=== PATIENT | female | born 1960 | race Caucasian/White ===

== ENCOUNTER 2019-08-12 14:29 | Inpatient (IN) | payer BC, OTHER ==
[~2019-08-12] VITALS: Ht 160 cm; Wt 80.1 kg
[2019-08-12] MEDS ORDERED: PANTOPRAZOLE 40 MG/10 ML VIAL INJ IV STA (14:51)
[2019-08-12] MEDS ORDERED: SODIUM CHLORIDE 0.9% 1,000 ML IVB ONE (14:51)
[2019-08-12] MEDS ORDERED: MORPHINE SULFATE 4 MG/ML SYR/VIAL IV ONE (15:00)
[2019-08-12] MEDS ORDERED: PROCHLORPERAZINE EDISYLATE 5 MG/ML 2ML VIAL IV ONE (15:00)
[2019-08-12 15:14] LABS: Basophils # (auto) 0 10 ^3/uL (0-0.2); Basophils % (auto) 0.5 % (0.0-2.0); Eosinophils # (auto) 0 10 ^3/uL (0-0.8); Hematocrit 44.2 % (36.0-46.0); Hemoglobin 14.9 g/dL (12.2-16.2); Lymphocytes # (auto) 1.3 10 ^3/uL (0.4-5.4); Lymphocytes % (auto) 13.9 % (10.0-50.0); Mean Corpuscular Hemoglobin 29.7 pg (28.0-32.0); Mean Corpuscular Hgb Conc. 33.8 g/dL (32.0-36.0); Monocytes # (auto) 0.4 10 ^3/uL (0-1.3); Neutrophils # (auto) 7.6 10 ^3/uL (1.6-8.6); Neutrophils % (auto) 81.6 % (37.0-80.0); Nucleated Red Blood Cells % 0.1 %; Platelet Count (auto) 273 10^3/uL (140-450); Red Blood Cells 5.03 10^6/uL (4.0-5.20); Red Cell Distribution Width 12.9 % (11.8-14.3); White Blood Cell 9.3 10^3/uL (4.4-10.8)
[2019-08-12 15:31] LABS: Albumin 4.3 g/dL (3.4-5.0); BUN/Creatinine Ratio 24.7; Calcium 9.7 mg/dL (8.5-10.1); Potassium 3.7 mmol/L (3.5-5.1)
[2019-08-12 15:38] LABS: Bilirubin, Total 0.5 mg/dL (0.2-1.0); Total Protein 8.5 g/dL (6.4-8.2)
[2019-08-12] MEDS ORDERED: IOHEXOL 300 MG/ML 100ML BOTTLE IJ ONE (16:27)
[2019-08-12] MEDS ORDERED: NITROGLYCERIN 0.4 MG SL TAB SL PRN (16:30)
[2019-08-12] MEDS ORDERED: MORPHINE SULF INJ 2 MG/ML SYRINGE 1ML IV PRN ×2 (16:30)
[2019-08-12] MEDS ORDERED: ONDANSETRON HCL 4 MG/2 ML VIAL IV PRN ×2 (16:30→16:45)
[2019-08-12] MEDS ORDERED: LORazepam 2MG/ML-1ML VIAL IV PRN (16:45)
[2019-08-12] MEDS ORDERED: SODIUM CHLORIDE 0.9% 1,000 ML IV ONE (16:45)
[2019-08-12 18:36] LABS: Urine Amorphous Crystal FEW /hpf (None Seen); Urine Bacteria NONE SEEN /hpf (None Seen); Urine Blood Negative /uL (Negative); Urine Mucus FEW (None Seen); Urine Specific Gravity 1.011 (1.001-1.035); Urine WBC 1 /hpf (0 - 5)
[2019-08-12] MEDS: D5W/SOD CHLO 0.9% 1,000 ML IV SCH (19:26)
[2019-08-12 22:00] VITALS: BP 143/79
[2019-08-12] MEDS ORDERED: ATOR20TA50 PO (22:49)
[2019-08-12] MEDS ORDERED: BIOTCAP2 PO (22:49)
[2019-08-12] MEDS ORDERED: LEVO150T10 PO (22:49)
[2019-08-12] MEDS: PANTOPRAZOLE 40 MG/10 ML VIAL INJ IV SCH (22:59)
[2019-08-12 23:00] VITALS: BP 143/79
[2019-08-13 05:00] VITALS: BP 127/97
[2019-08-13] MEDS: D5W/SOD CHLO 0.9% 1,000 ML IV SCH ×3 (06:04→22:26)
[2019-08-13 06:07] LABS: INR 1.11 (0.9-1.15)
[2019-08-13] MEDS ORDERED: PROMETHAZINE HCL 25 MG/ML 1ML IV PRN (08:45)
[2019-08-13] MEDS ORDERED: LABETALOL HCL 5 MG/ML 4ML SYRINGE IV PRN (08:45)
[2019-08-13 09:00] VITALS: BP 201/102
[2019-08-13] MEDS: PANTOPRAZOLE 40 MG/10 ML VIAL INJ IV SCH ×2 (09:26→22:25)
[2019-08-13] MEDS ORDERED: PANTOPRAZOLE 40 MG/10 ML VIAL INJ IV SCH (10:00)
[2019-08-13] MEDS ORDERED: MIDAZOLAM HCL 1MG/1ML-2 ML VIAL ONE (11:18)
[2019-08-13] MEDS ORDERED: LIDOCAINE 2% (LOCAL ANESTH.) PF 5ml SDV ONE (11:18)
[2019-08-13] MEDS ORDERED: diphenhdrAMINE HCL 50 MG/1 ML VL ONE (11:18)
[2019-08-13] MEDS ORDERED: METOCLOPRAMIDE HCL 5MG/ml INJ 2ml VIAL ONE (11:18)
[2019-08-13] MEDS ORDERED: GLYCOPYRROLATE 0.2 MG/ML 1ML VIAL ONE (11:18)
[2019-08-13] MEDS ORDERED: ROCURONIUM 10MG/ML 10ML VIAL IV ONE (11:20)
[2019-08-13] MEDS ORDERED: PROPOFOL 10 MG/ML 20 ML IV ONE (11:22)
[2019-08-13] MEDS: hydrALAZINE HCL 20 MG/ML VL IV PRN ×2 (11:35→18:25)
[2019-08-13] MEDS ORDERED: ONDANSETRON HCL 4 MG/2 ML VIAL IV PRN (12:30)
[2019-08-13] MEDS: amLODIPine BESYLATE 5 MG TAB PO SCH (12:57)
[2019-08-13 13:00] VITALS: BP 161/81
[2019-08-13] MEDS: PROCHLORPERAZINE EDISYLATE 5 MG/ML 2ML VIAL IV PRN ×2 (13:37→20:33)
[2019-08-13 17:00] VITALS: BP 163/88
[2019-08-13 22:00] VITALS: BP 135/65
[2019-08-14 05:00] VITALS: BP 112/69
[2019-08-14] MEDS: MORPHINE SULF INJ 2 MG/ML SYRINGE 1ML IV PRN ×3 (05:40→22:18)
[2019-08-14] MEDS: PROCHLORPERAZINE EDISYLATE 5 MG/ML 2ML VIAL IV PRN ×2 (05:41→09:41)
[2019-08-14 06:09] LABS: BUN/Creatinine Ratio 11.8; Calcium 7.8 mg/dL (8.5-10.1)
[2019-08-14 06:32] LABS: Potassium 2.9 mmol/L (3.5-5.1)
[2019-08-14] MEDS ORDERED: POTASSIUM EFFERVESENT TAB 25 MEQ PO ONE (07:15)
[2019-08-14 08:00] VITALS: BP 145/83
[2019-08-14] MEDS: D5W/SOD CHLO 0.9% 1,000 ML IV SCH ×2 (08:45→18:45)
[2019-08-14 09:00] VITALS: BP 145/83
[2019-08-14] MEDS: PANTOPRAZOLE 40 MG/10 ML VIAL INJ IV SCH ×2 (09:40→21:18)
[2019-08-14] MEDS: amLODIPine BESYLATE 5 MG TAB PO SCH ×2 (09:41→10:00)
[2019-08-14] MEDS ORDERED: POTASSIUM CHLORIDE 40 MEQ, LIDOCAINE 1% (LOCAL ANESTH.) 4 ML in SODIUM CHL 0.9% 100 ML IV ONE (12:15)
[2019-08-14 13:00] VITALS: BP 160/97
[2019-08-14] MEDS: METOCLOPRAMIDE HCL 5MG/ml INJ 2ml VIAL IV PRN ×2 (14:29→22:17)
[2019-08-14] MEDS: KETOROLAC TROMETH 30 MG/ML 1ML VIAL IV PRN (14:53)
[2019-08-14] MEDS: LORazepam 2MG/ML-1ML VIAL IV PRN (16:30)
[2019-08-14] MEDS: hydrALAZINE HCL 20 MG/ML VL IV PRN (17:59)
[2019-08-14 22:00] VITALS: BP 122/68
[2019-08-15] MEDS: LORazepam 2MG/ML-1ML VIAL IV PRN ×4 (01:03→23:38)
[2019-08-15] MEDS: KETOROLAC TROMETH 30 MG/ML 1ML VIAL IV PRN (01:04)
[2019-08-15] MEDS: D5W/SOD CHLO 0.9% 1,000 ML IV SCH ×2 (04:45→23:52)
[2019-08-15 04:54] VITALS: BP 121/70
[2019-08-15] MEDS: MORPHINE SULF INJ 2 MG/ML SYRINGE 1ML IV PRN ×3 (06:30→20:33)
[2019-08-15] MEDS: METOCLOPRAMIDE HCL 5MG/ml INJ 2ml VIAL IV PRN ×3 (06:46→20:32)
[2019-08-15 07:33] LABS: Calcium 8.3 mg/dL (8.5-10.1)
[2019-08-15 07:37] LABS: BUN/Creatinine Ratio 8.7; Magnesium 2.1 mg/dL (1.6-2.6)
[2019-08-15 07:42] LABS: Potassium 2.9 mmol/L (3.5-5.1)
[2019-08-15 09:00] VITALS: BP 167/94
[2019-08-15] MEDS: PANTOPRAZOLE 40 MG/10 ML VIAL INJ IV SCH ×2 (09:56→20:33)
[2019-08-15] MEDS: amLODIPine BESYLATE 5 MG TAB PO SCH (10:00)
[2019-08-15] MEDS: hydrALAZINE HCL 20 MG/ML VL IV PRN (10:02)
[2019-08-15] MEDS ORDERED: IOHEXOL 300 MG/ML 100ML BOTTLE IJ ONE (11:11)
[2019-08-15] MEDS ORDERED: POTASSIUM CHLORIDE 60 MEQ, LIDOCAINE 1% (LOCAL ANESTH.) 6 ML in SODIUM CHL 0.9% 500 ML IV ONE (11:45)
[2019-08-15 13:00] VITALS: BP 168/92
[2019-08-15] MEDS: MAGNESIUM SULFATE 1GM/100ML 100 ML IV SCH ×2 (13:20→15:19)
[2019-08-15 17:00] VITALS: BP 153/84
[2019-08-15 22:00] VITALS: BP 150/94
[2019-08-16 05:00] VITALS: BP 106/60
[2019-08-16 05:58] LABS: Basophils # (auto) 0.1 10 ^3/uL (0-0.2); Basophils % (auto) 0.5 % (0.0-2.0); Eosinophils # (auto) 0.1 10 ^3/uL (0-0.8); Eosinophils % (auto) 0.8 % (0.0-7.0); Hematocrit 40.9 % (36.0-46.0); Hemoglobin 13.9 g/dL (12.2-16.2); Lymphocytes # (auto) 2.8 10 ^3/uL (0.4-5.4); Lymphocytes % (auto) 27.6 % (10.0-50.0); Mean Corpuscular Hemoglobin 29.6 pg (28.0-32.0); Mean Corpuscular Volume 87.1 fL (80.0-100.0); Monocytes # (auto) 0.8 10 ^3/uL (0-1.3); Neutrophils # (auto) 6.4 10 ^3/uL (1.6-8.6); Neutrophils % (auto) 63.1 % (37.0-80.0); Nucleated Red Blood Cells % 0.1 %; Platelet Count (auto) 280 10^3/uL (140-450); Red Blood Cells 4.69 10^6/uL (4.0-5.20); White Blood Cell 10.2 10^3/uL (4.4-10.8)
[2019-08-16] MEDS: MORPHINE SULF INJ 2 MG/ML SYRINGE 1ML IV PRN ×4 (06:12→23:09)
[2019-08-16] MEDS: METOCLOPRAMIDE HCL 5MG/ml INJ 2ml VIAL IV PRN ×3 (06:12→20:23)
[2019-08-16 06:14] LABS: BUN/Creatinine Ratio 6.1; Calcium 8.2 mg/dL (8.5-10.1)
[2019-08-16] MEDS: KETOROLAC TROMETH 30 MG/ML 1ML VIAL IV PRN ×2 (08:57→20:23)
[2019-08-16 09:00] VITALS: BP 156/108
[2019-08-16] MEDS: PANTOPRAZOLE 40 MG/10 ML VIAL INJ IV SCH ×2 (09:24→20:17)
[2019-08-16] MEDS: amLODIPine BESYLATE 5 MG TAB PO SCH (09:29)
[2019-08-16] MEDS: HYOSCYAMINE SULF 0.125 MG ODT TAB PO PRN ×2 (10:51→17:14)
[2019-08-16] MEDS: LORazepam 2MG/ML-1ML VIAL IV PRN ×2 (11:30→20:22)
[2019-08-16 13:00] VITALS: BP 160/102
[2019-08-16] MEDS ORDERED: POTASSIUM CHLORIDE 40 MEQ, LIDOCAINE 1% (LOCAL ANESTH.) 4 ML in SODIUM CHL 0.9% 100 ML IV ONE (14:30)
[2019-08-16] MEDS ORDERED: cefTRIAXone 1GM/50ML D5W 50 ML IV ONE (14:30)
[2019-08-16] MEDS ORDERED: hydrALAZINE HCL 20 MG/ML VL IV PRN (14:45)
[2019-08-16] MEDS: D5W/SOD CHLO 0.9% 1,000 ML IV SCH ×2 (15:55→20:45)
[2019-08-16 17:00] VITALS: BP 130/93
[2019-08-16 22:00] VITALS: BP 157/107
[2019-08-16] MEDS: metroNIDAZOLE 500MG/100ML 100 ML IV SCH (22:02)
[2019-08-17 05:00] VITALS: BP 115/76
[2019-08-17] MEDS: metroNIDAZOLE 500MG/100ML 100 ML IV SCH ×2 (05:45→17:11)
[2019-08-17] MEDS: D5W/SOD CHLO 0.9% 1,000 ML IV SCH ×2 (06:52→16:45)
[2019-08-17 07:34] LABS: Calcium 7.8 mg/dL (8.5-10.1)
[2019-08-17 07:37] LABS: BUN/Creatinine Ratio 9.6
[2019-08-17 09:00] VITALS: BP 146/73
[2019-08-17] MEDS ORDERED: cefTRIAXone 1GM/50ML D5W 50 ML IV SCH (09:00)
[2019-08-17] MEDS: PANTOPRAZOLE 40 MG/10 ML VIAL INJ IV SCH (09:28)
[2019-08-17] MEDS: amLODIPine BESYLATE 5 MG TAB PO SCH (09:30)
[2019-08-17 13:00] VITALS: BP 143/96
[2019-08-17] MEDS ORDERED: POTASSIUM CHL 10 Meq TABLET PO ONE ×2 (15:00→16:00)
[2019-08-17 16:28] VITALS: BP 146/73
[2019-08-17 17:00] VITALS: BP 139/77
== END 2019-08-17 17:45 | disposition home or self-care (01) | DRG 392 ==
LOC: ER 14:29 → OVERFLOW 14:30 → WEST WING 21:33
PROVIDERS: ADMIT Nurse Practitioner Acute Care; ATTEND Internal Medicine
PROC: 0DB68ZX Excision of Stomach, Via Natural or Artificial Opening Endoscopic, Diagnostic (ICD-10-PCS; principal; 2019-08-13 11:12)
DX: K52.9 Noninfective gastroenteritis and colitis, unspecified (principal); K29.80 Duodenitis without bleeding; E66.9 Obesity, unspecified; K21.9 Gastro-esophageal reflux disease without esophagitis; E87.6 Hypokalemia; F41.9 Anxiety disorder, unspecified; I10 Essential (primary) hypertension; K44.9 Diaphragmatic hernia without obstruction or gangrene; E86.0 Dehydration; E03.9 Hypothyroidism, unspecified; F12.90 Cannabis use, unspecified, uncomplicated; Z68.31 Body mass index [BMI] 31.0-31.9, adult; Z87.11 Personal history of peptic ulcer disease; Z87.19 Personal history of other diseases of the digestive system; Z90.710 Acquired absence of both cervix and uterus; Z87.891 Personal history of nicotine dependence
CPT/HCPCS: 36415; 71045; 74177; 76705; 78226; 80048; 80053; 81001; 83690; 83735; 84443; 85025; 85610; 93005; 96361; 96374; 96375; 96376; C9113; G0378; J0696; J1885; J2001; J2250; J2405; J2704; J3490; J7042

== ENCOUNTER → 2019-08-22 | Emergency (ER) | payer BC ==
[~2019-08-22] VITALS: Ht 160 cm; Wt 78.0 kg
[~2019-08-22] MED LIST: ATOR20TA50 PO; MORPHINE SULFATE 4 MG/ML SYR/VIAL IV ONE; PANTOPRAZOLE 40 MG/10 ML VIAL INJ IV ONE; PROCHLORPERAZINE EDISYLATE 5 MG/ML 2ML VIAL IV ONE; SODIUM CHLORIDE 0.9% 1,000 ML IV ONE
[2019-08-22 16:46] LABS: Basophils # (auto) 0 10 ^3/uL (0-0.2); Basophils % (auto) 0.4 % (0.0-2.0); Eosinophils # (auto) 0 10 ^3/uL (0-0.8); Hematocrit 42.5 % (36.0-46.0); Hemoglobin 13.9 g/dL (12.2-16.2); Lymphocytes # (auto) 0.7 10 ^3/uL (0.4-5.4); Lymphocytes % (auto) 7.7 % (10.0-50.0); Mean Corpuscular Hemoglobin 29.1 pg (28.0-32.0); Mean Corpuscular Hgb Conc. 32.8 g/dL (32.0-36.0); Mean Corpuscular Volume 88.6 fL (80.0-100.0); Monocytes # (auto) 0.3 10 ^3/uL (0-1.3); Neutrophils % (auto) 88.9 % (37.0-80.0); Nucleated Red Blood Cells % 0.1 %; Platelet Count (auto) 337 10^3/uL (140-450); Red Cell Distribution Width 13.7 % (11.8-14.3)
[2019-08-22 17:03] LABS: Albumin 4.1 g/dL (3.4-5.0); BUN/Creatinine Ratio 9.5; Calcium 8.8 mg/dL (8.5-10.1); Potassium 3.7 mmol/L (3.5-5.1)
[2019-08-22 17:06] LABS: Bilirubin, Total 0.6 mg/dL (0.2-1.0); Total Protein 8.5 g/dL (6.4-8.2)
[2019-08-22 17:48] LABS: Amylase 36 U/L (25-115); Lipase 103 U/L (73-393)
[2019-08-22 18:00] VITALS: BP 99/46
== END | disposition home or self-care (01) ==
LOC: ER 15:37
DX: K29.70 Gastritis, unspecified, without bleeding (principal); K44.9 Diaphragmatic hernia without obstruction or gangrene; R11.10 Vomiting, unspecified; Z71.51 Drug abuse counseling and surveillance of drug abuser; Z88.6 Allergy status to analgesic agent; Z79.899 Other long term (current) drug therapy
CPT/HCPCS: 36415; 80053; 82150; 83690; 85025; 96361; 96374; 96375; 99284; C9113; J0780; J2270; J7030

== ENCOUNTER 2020-05-04 04:32 | Emergency (ER) | payer BC ==
[~2020-05-04] VITALS: Ht 160 cm; Wt 81.6 kg
[~2020-05-04 04:32] MED LIST changes: -MORPHINE SULFATE 4 MG/ML SYR/VIAL IV ONE; -PANTOPRAZOLE 40 MG/10 ML VIAL INJ IV ONE; -PROCHLORPERAZINE EDISYLATE 5 MG/ML 2ML VIAL IV ONE; -SODIUM CHLORIDE 0.9% 1,000 ML IV ONE
[2020-05-04 07:49] LABS: Basophils # (auto) 0 10 ^3/uL (0-0.2); Basophils % (auto) 0.2 % (0.0-2.0); Eosinophils # (auto) 0 10 ^3/uL (0-0.8); Eosinophils % (auto) 0.1 % (0.0-7.0); Hemoglobin 13.8 g/dL (12.2-16.2); Lymphocytes # (auto) 1.3 10 ^3/uL (0.4-5.4); Lymphocytes % (auto) 10.8 % (10.0-50.0); Mean Corpuscular Hemoglobin 29.6 pg (28.0-32.0); Mean Corpuscular Hgb Conc. 33.6 g/dL (32.0-36.0); Mean Corpuscular Volume 88.1 fL (80.0-100.0); Monocytes # (auto) 0.6 10 ^3/uL (0-1.3); Neutrophils # (auto) 10.3 10 ^3/uL (1.6-8.6); Neutrophils % (auto) 83.9 % (37.0-80.0); Platelet Count (auto) 303 10^3/uL (140-450); Red Blood Cells 4.65 10^6/uL (4.0-5.20); Red Cell Distribution Width 14.3 % (11.8-14.3); White Blood Cell 12.3 10^3/uL (4.4-10.8)
[2020-05-04 08:02] LABS: Potassium 3.9 mmol/L (3.5-5.1)
[2020-05-04 08:06] LABS: Albumin 4.3 g/dL (3.4-5.0); BUN/Creatinine Ratio 20.3; Calcium 9.1 mg/dL (8.5-10.1)
[2020-05-04 08:09] LABS: Bilirubin, Total 0.4 mg/dL (0.2-1.0); Total Protein 7.9 g/dL (6.4-8.2)
[2020-05-04] MEDS ORDERED: SODIUM CHLORIDE 0.9% 1,000 ML IV ONE (08:45)
[2020-05-04] MEDS ORDERED: ONDANSETRON HCL 4 MG/2 ML VIAL IV ONE (08:45)
[2020-05-04 08:58] LABS: Urine Bacteria NONE SEEN /hpf (None Seen); Urine Blood Negative /uL (Negative); Urine Mucus FEW (None Seen); Urine Specific Gravity 1.018 (1.001-1.035); Urine WBC 2 /hpf (0 - 5)
[2020-05-04 09:36] VITALS: BP 143/83
== END 2020-05-04 09:55 | disposition home or self-care (01) ==
LOC: ER 04:32
DX: K29.00 Acute gastritis without bleeding (principal); D72.829 Elevated white blood cell count, unspecified; R11.10 Vomiting, unspecified; R73.9 Hyperglycemia, unspecified; Z87.891 Personal history of nicotine dependence
CPT/HCPCS: 36415; 74176; 80053; 81001; 85025; 96361; 96374; 99284; J2405; J7030

== ENCOUNTER 2020-05-05 04:41 | Emergency (ER) | payer BC ==
[~2020-05-05] VITALS: Ht 160 cm; Wt 81.6 kg
[2020-05-05] MEDS ORDERED: SODIUM CHLORIDE 0.9% 1,000 ML IVB ONE (05:15)
[2020-05-05] MEDS ORDERED: FAMOTIDINE (10MG/ML) 2ML VL IV ONE (05:15)
[2020-05-05] MEDS ORDERED: METOCLOPRAMIDE HCL 5MG/ml INJ 2ml VIAL IV ONE (05:15)
[2020-05-05] MEDS ORDERED: IOHEXOL 300 MG/ML 100ML BOTTLE IJ ONE (05:21)
[2020-05-05 07:03] LABS: Basophils # (auto) 0 10 ^3/uL (0-0.2); Basophils % (auto) 0.5 % (0.0-2.0); Eosinophils # (auto) 0 10 ^3/uL (0-0.8); Eosinophils % (auto) 0.2 % (0.0-7.0); Hematocrit 36.6 % (36.0-46.0); Hemoglobin 12.7 g/dL (12.2-16.2); Lymphocytes # (auto) 1.7 10 ^3/uL (0.4-5.4); Lymphocytes % (auto) 17.4 % (10.0-50.0); Mean Corpuscular Hgb Conc. 34.6 g/dL (32.0-36.0); Mean Corpuscular Volume 86.7 fL (80.0-100.0); Monocytes # (auto) 0.8 10 ^3/uL (0-1.3); Monocytes % (auto) 8.5 % (0.0-12.0); Neutrophils # (auto) 7.3 10 ^3/uL (1.6-8.6); Neutrophils % (auto) 73.4 % (37.0-80.0); Nucleated Red Blood Cells % 0.1 %; Platelet Count (auto) 268 10^3/uL (140-450); Red Blood Cells 4.22 10^6/uL (4.0-5.20); Red Cell Distribution Width 13.3 % (11.8-14.3)
[2020-05-05 07:26] LABS: Albumin 3.5 g/dL (3.4-5.0); Calcium 7.1 mg/dL (8.5-10.1); Potassium 3.7 mmol/L (3.5-5.1)
[2020-05-05 07:34] LABS: BUN/Creatinine Ratio 17.9; Bilirubin, Total 0.5 mg/dL (0.2-1.0); Total Protein 6.6 g/dL (6.4-8.2)
[2020-05-05] MEDS ORDERED: ONDANSETRON HCL 4 MG/2 ML VIAL ONE (07:55)
[2020-05-05] MEDS ORDERED: ONDANSETRON HCL 4 MG/2 ML VIAL IV ONE (08:00)
[2020-05-05] MEDS ORDERED: MORPHINE SULF INJ 2 MG/ML SYRINGE 1ML ONE (10:01)
[2020-05-05 12:02] VITALS: BP 144/67
[2020-05-05] MEDS ORDERED: ACETAMINOPHEN 325 MG TAB PO ONE (12:15)
== END 2020-05-05 13:30 | disposition home or self-care (01) ==
LOC: ER 04:41
DX: R11.2 Nausea with vomiting, unspecified (principal)
CPT/HCPCS: 36415; 74177; 80053; 83605; 83690; 83735; 85025; 93005; 96361; 96374; 96375; 99285; J2270; J2405; J2765; J3490; J7030; Q9967

== ENCOUNTER 2020-12-03 06:11 | Inpatient (IN) | payer BC ==
[~2020-12-03] VITALS: Ht 160 cm; Wt 82.6 kg
[2020-12-03] MEDS ORDERED: PROCHLORPERAZINE EDISYLATE 5 MG/ML 2ML VIAL IV ONE (07:30)
[2020-12-03] MEDS ORDERED: SODIUM CHLORIDE 0.9% 1,000 ML IV ONE ×2 (07:30)
[2020-12-03] MEDS ORDERED: MORPHINE SULFATE 4 MG/ML SYR/VIAL IV ONE (07:30)
[2020-12-03 07:38] LABS: Basophils # (auto) 0.1 10 ^3/uL (0-0.2); Basophils % (auto) 0.8 % (0.0-2.0); Eosinophils # (auto) 0.1 10 ^3/uL (0-0.8); Eosinophils % (auto) 0.4 % (0.0-7.0); Hematocrit 46.5 % (36.0-46.0); Hemoglobin 15.9 g/dL (12.2-16.2); Lymphocytes # (auto) 2.3 10 ^3/uL (0.4-5.4); Lymphocytes % (auto) 15.8 % (10.0-50.0); Mean Corpuscular Hemoglobin 29.3 pg (28.0-32.0); Mean Corpuscular Hgb Conc. 34.2 g/dL (32.0-36.0); Mean Corpuscular Volume 85.6 fL (80.0-100.0); Monocytes # (auto) 0.8 10 ^3/uL (0-1.3); Monocytes % (auto) 5.5 % (0.0-12.0); Neutrophils % (auto) 77.5 % (37.0-80.0); Nucleated Red Blood Cells % 0.1 %; Red Blood Cells 5.43 10^6/uL (4.0-5.20); Red Cell Distribution Width 13.8 % (11.8-14.3); White Blood Cell 14.2 10^3/uL (4.4-10.8)
[2020-12-03 07:56] LABS: Albumin 4.2 g/dL (3.4-5.0); Anion Gap 10 (5-15); Blood Urea Nitrogen 20 mg/dL (7-18); Calcium 9.1 mg/dL (8.5-10.1); Carbon Dioxide 29 mmol/L (21-32); Chloride 93 mmol/L (98-107); Glucose 133 mg/dL (74-106); Potassium 3.3 mmol/L (3.5-5.1); Sodium 132 mmol/L (136-145)
[2020-12-03 08:01] LABS: Alanine Aminotransferase 46 U/L (13-56); Alkaline Phosphatase 93 U/L (45-117); Aspartate Aminotransferase 34 U/L (15-37); BUN/Creatinine Ratio 20.2; Bilirubin, Total 0.7 mg/dL (0.2-1.0); GFR African American 74 mL/min; GFR Non-African American 61 mL/min; Total Protein 8.1 g/dL (6.4-8.2)
[2020-12-03] MEDS ORDERED: cefTRIAXone 1GM/50ML D5W 50 ML IV ONE (12:15)
[2020-12-03] MEDS ORDERED: NITROGLYCERIN 0.4 MG SL TAB SL PRN (12:45)
[2020-12-03] MEDS ORDERED: MORPHINE SULFATE INJECTION 2 MG/ML SYRG IV PRN ×2 (12:45)
[2020-12-03] MEDS ORDERED: ONDANSETRON HCL 4 MG/2 ML VIAL IV PRN (12:45)
[2020-12-03 13:18] LABS: Urine Bacteria NONE SEEN /hpf (None Seen); Urine Blood Negative /uL (Negative); Urine Hyaline Cast FEW /lpf (0 - 2); Urine Mucus FEW (None Seen); Urine Specific Gravity 1.012 (1.001-1.035); Urine WBC <1 /hpf (0 - 5)
[2020-12-03] MEDS ORDERED: HYOSCYAMINE SULF 0.125 MG ODT TAB PO PRN (15:15)
[2020-12-03] MEDS: cefTRIAXone 1GM/50ML D5W 50 ML IV SCH ×2 (15:22→15:42)
[2020-12-03] MEDS: AZITHROMYCIN 500MG/ 250ML 250 ML IV SCH (15:45)
[2020-12-03] MEDS ORDERED: POTASSIUM CHL 20 Meq TABLET PO ONE (21:00)
[2020-12-03] MEDS: metroNIDAZOLE 500MG/100ML 100 ML IV SCH (23:33)
[2020-12-04] MEDS: metroNIDAZOLE 500MG/100ML 100 ML IV SCH ×2 (06:18→14:00)
[2020-12-04] MEDS: cefTRIAXone 1GM/50ML D5W 50 ML IV SCH (09:00)
[2020-12-04] MEDS ORDERED: PANTOPRAZOLE 40 MG/10 ML VIAL INJ IV SCH (10:00)
[2020-12-04] MEDS: AZITHROMYCIN 500MG/ 250ML 250 ML IV SCH (10:20)
[2020-12-04 16:00] VITALS: BP 126/76
== END 2020-12-04 15:59 | disposition home or self-care (01) | DRG 392 ==
LOC: ER 06:11 → TELE 12:41
PROVIDERS: ADMIT Internal Medicine; ATTEND Internal Medicine
DX: K29.70 Gastritis, unspecified, without bleeding (principal); Z20.822 Contact with and (suspected) exposure to COVID-19; F12.90 Cannabis use, unspecified, uncomplicated; Z88.5 Allergy status to narcotic agent; Z90.710 Acquired absence of both cervix and uterus; Z87.11 Personal history of peptic ulcer disease; Z82.3 Family history of stroke
CPT/HCPCS: 36415; 74176; 80053; 81001; 84484; 85025; 87426; 93005; 96361; 96374; C9113; G0378; J0696; J3490